=== PATIENT | female | born 2000 | race Caucasian/White ===

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

== ENCOUNTER 2021-05-29 20:40 | Emergency (ER) | payer SELFPAY ==
[2021-05-29 21:05] VITALS: BP 134/68; PULSE 72; RESP 18; TEMP 36.1; O2SAT 100
--- NOTE | 2021-05-29 21:06 | ED.GENADULT ---
HPI - General Adult General Chief complaint: Unspecified Stated complaint: + test, wants blood work Time Seen by Provider: 05/29/21 21:06 History of Present Illness HPI narrative: 20-year-old female presents to the emergency room for evaluation of possible . Patient states her last menstrual period was over a month ago. Patient states that she took 2 urine test prior to arrival, 1 was +1 was negative. Patient denies any abdominal pain or vaginal. Related Data Home Medications Medication Instructions Recorded Confirmed cetirizine 10 mg PO DAILY PRN 01/01/20 Allergies Allergy/AdvReac Type Severity Reaction Status Date / Time No Known Allergies Allergy Verified 01/01/20 00:05 Review of Systems Review of Systems: CONSTITUTIONAL: Denies fever, chills, or sweats. EYES: Denies visual changes, redness, or discharge. ENT: Denies rhinorrhea, congestion, sore throat, or otalgia. CARDIOVASCULAR: Denies chest pain, palpitations, or edema. RESPIRATORY: Denies cough or dyspnea. GASTROINTESTINAL: Denies abdominal pain, nausea, vomiting, or diarrhea. GENITOURINARY: Denies dysuria or hematuria. SKIN: Denies rash or itching. MUSCULOSKELETAL: Denies back pain, joint pain, or myalgia. NEUROLOGIC: Denies headache, numbness, dizziness, or weakness. PSYCHIATRIC: Denies anxiety or depression. PMFSH Past Medical History Medical History ADHD Surgical History Surgical History No history of previous surgery Social History Social History Smoking status: Never smoker Gender identity (if verbalized by the patient): Female Exam Narrative: GENERAL: Well-appearing, well-nourished, and in no acute distress. HEAD: Normocephalic, atraumatic. EYES: PERRLA and EOMI. CHEST: Clear to auscultation. No respiratory distress. No wheezes rales or rhonchi HEART: Regular rate and rhythm. No murmur heard. Normal peripheral pulses. ABDOMEN: Soft, nontender, nondistended, normal active bowel sounds. EXTREMITIES: Normal range of motion. No edema. SKIN: Warm, dry, no rash. NEURO: No focal deficits. Alert and oriented x3. PSYCH: Normal mood and affect. Course Vital Signs Vital signs: Vital Signs Temperature 36.1 C L 05/29/21 21:05 Pulse Rate 72 05/29/21 21:05 Respiratory Rate 18 05/29/21 21:05 Blood Pressure 134/68 05/29/21 21:05 Pulse Oximetry 100 05/29/21 21:05 Temperature 36.1 C L 05/29/21 21:05 Pulse Rate 72 05/29/21 21:05 Respiratory Rate 18 05/29/21 21:05 Blood Pressure 134/68 05/29/21 21:05 Pulse Oximetry 100 05/29/21 21:05 Medical Decision Making Vital Signs Vital Signs: Vital Signs Temperature 36.1 C L 05/29/21 21:05 Pulse Rate 72 05/29/21 21:05 Respiratory Rate 18 05/29/21 21:05 Blood Pressure 134/68 05/29/21 21:05 Pulse Oximetry 100 05/29/21 21:05 Temperature 36.1 C L 05/29/21 21:05 Pulse Rate 72 05/29/21 21:05 Respiratory Rate 18 05/29/21 21:05 Blood Pressure 134/68 05/29/21 21:05 Pulse Oximetry 100 05/29/21 21:05 Lab Data Labs: Lab Results 05/29/21 05/29/21 Range/Units 21:38 21:59 Serum HCG, Qual Negative Urine Test Negative Discharge Plan Discharge Clinical Impression: Encounter for test with result negative Patient Disposition: Home, Self-Care Condition: Stable Instructions: Antibiotic Form Prescriptions: No Action cetirizine 10 mg tablet 10 mg PO DAILY PRN (Reason: Allergy Symptoms) RF: 0 Cepacol Sore Throat (zara-men) 15-2.6 mg lozenge 1 víctor mucous membrane Q2H PRN (Reason: sore throat) Qty: 16 RF: 0 Follow-up/Referrals: PHYSICIAN,BREAK AND LOAD OPERATOR [Primary Care Provider] - Time of Disposition: 22:20
[2021-05-29 22:14] LABS: Pregnancy On Board Control Positive; Urine Pregnancy Test Negative
[2021-05-29 22:14] LABS: Serum Qual hCG Negative
[2021-05-29 22:15] LABS: SPREG INTERNAL CONTROL Positive
== END 2021-05-29 23:00 | disposition home or self-care (01) ==
PROVIDERS: Emergency Provider Nurse Practitioner Family
DX: Z32.02 Encounter for pregnancy test, result negative (principal)
CPT/HCPCS: 36415; 81025; 84703; 99283

== ENCOUNTER 2021-06-08 17:35 | Emergency (ER) | payer SELFPAY ==
[2021-06-08 17:37] VITALS: BP 137/77; PULSE 87; RESP 18; TEMP 36.9; O2SAT 98
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
[2021-06-08 18:42] VITALS: BP 118/78; PULSE 72; RESP 16; O2SAT 100
== END 2021-06-08 18:43 | disposition home or self-care (01) ==
LOC: ANHED 17:44
PROVIDERS: Emergency Provider Nurse Practitioner Family
DX: S80.862A Insect bite (nonvenomous), left lower leg, initial encounter (principal); S80.861A Insect bite (nonvenomous), right lower leg, initial encounter; S40.862A Insect bite (nonvenomous) of left upper arm, initial encounter; S40.861A Insect bite (nonvenomous) of right upper arm, initial encounter; F90.9 Attention-deficit hyperactivity disorder, unspecified type; W57.XXXA Bitten or stung by nonvenomous insect and other nonvenomous arthropods, initial encounter
CPT/HCPCS: 96372; 99283; J1100

== ENCOUNTER 2021-12-29 18:51 | Emergency (ER) | payer OTHER, SELFPAY ==
--- NOTE | ~2021-12-29 | XR_ITS ---
EXAMINATION: XR ankle RT min 3V DATE: 12/29/2021 19:10 INDICATION: Lateral sided right ankle swelling post injury with audible pop TECHNIQUE: Anteroposterior, oblique, mortise, and lateral views of the right ankle were obtained. COMPARISON: None. FINDINGS: Alignment is normal. No fracture. Joint spaces are well maintained. No ankle joint effusion. The so ft tissues are unremarkable. IMPRESSION: Negative right ankle radiographs. Reviewed, dictated and finalized at location A. MANAGER
[2021-12-29 18:53] VITALS: BP 130/64; PULSE 79; RESP 16; TEMP 37; O2SAT 100
--- NOTE | 2021-12-29 19:24 | ED.GENADULT ---
HPI - General Adult General Chief complaint: Extremity Injury, Lower Stated complaint: R ANKLE PAIN Time Seen by Provider: 12/29/21 19:03 Source: RN notes reviewed History of Present Illness HPI narrative: Patient presents emergency room from home for right ankle pain. Patient states that her mother was in the hospital last night and she had stayed with her mother and had been sleeping sitting upright in a chair states this morning she had gone to get up and her foot was asleep and it caused her to stumble rolling her right ankle she states that time she felt a pop in her right lateral ankle and is had pain since that time. States she is able to walk on the ankle but it is painful she denies any other trauma or injury states she has not taken anything for the pain denies any numbness or tingling Related Data Home Medications Medication Instructions Recorded Confirmed cetirizine 10 mg tablet 10 mg PO DAILY PRN Allergy Symptoms 01/01/20 Allergies Allergy/AdvReac Type Severity Reaction Status Date / Time No Known Allergies Allergy Verified 01/01/20 00:05 Review of Systems Review of Systems: Gen.: Denies fevers or chills Musculoskeletal: See HPI Neuro: Denies numbness, tingling, weakness Skin: Denies rash Endo: Denies DM PMFSH Past Medical History Medical History ADHD Surgical History Surgical History No history of previous surgery Social History Social History Smoking status: Never smoker Gender identity (if verbalized by the patient): Female Exam Narrative: APPEARANCE: No acute distress, nontoxic, resting in bed Eyes: EOMI HEENT: Normocephalic, atraumatic, RESPIRATORY: No respiratory distress MUSCULOSKELETAl: Tender to palpation of the right lateral malleolus mild swelling with no ecchymosis no tenderness over the anterior or medial ankle no tenderness of the proximal fibula or the base of the fifth metatarsal dorsalis pedis pulse 2+ neurovascular intact NEURO: Awake and alert. Following commands, speech normal, no focal deficits SKIN:: Warm, dry. Normal Color no rash or lesions Course Course Emergency Course: Discussed with patient results of workup and diagnosis. Discussed need for follow-up with primary care, proper use of medication, and reasons to return to the emergency department. Patient understands and agrees to current treatment plan Vital Signs Vital signs: Vital Signs Temperature 98.6 F 12/29/21 18:53 Pulse Rate 79 12/29/21 18:53 Respiratory Rate 16 12/29/21 18:53 Blood Pressure 130/64 12/29/21 18:53 Pulse Oximetry 100 12/29/21 18:53 Oxygen Delivery Room Air 12/29/21 18:53 Temperature 98.6 F 12/29/21 18:53 Pulse Rate 79 12/29/21 18:53 Respiratory Rate 16 12/29/21 18:53 Blood Pressure 130/64 12/29/21 18:53 Pulse Oximetry 100 12/29/21 18:53 Oxygen Delivery Room Air 12/29/21 18:53 Medical Decision Making Vital Signs Vital Signs: Vital Signs Temperature 98.6 F 12/29/21 18:53 Pulse Rate 79 12/29/21 18:53 Respiratory Rate 16 12/29/21 18:53 Blood Pressure 130/64 12/29/21 18:53 Pulse Oximetry 100 12/29/21 18:53 Oxygen Delivery Room Air 12/29/21 18:53 Temperature 98.6 F 12/29/21 18:53 Pulse Rate 79 12/29/21 18:53 Respiratory Rate 16 12/29/21 18:53 Blood Pressure 130/64 12/29/21 18:53 Pulse Oximetry 100 12/29/21 18:53 Oxygen Delivery Room Air 12/29/21 18:53 Imaging Data Radiologist's impression: ITS Impressions Ankle X-Ray 12/29/21 19:25 IMPRESSION: Negative right ankle radiographs. Discharge Plan Discharge Clinical Impression: Right ankle sprain Patient Disposition: Home, Self-Care Condition: Stable Instructions: Antibiotic Form, Ankle Sprain (ED) Additional Instructions: Return for
[2021-12-29] MEDS: IBUPROFEN 600 MG TABLET PO (19:56)
== END 2021-12-29 20:05 | disposition home or self-care (01) ==
PROVIDERS: Emergency Provider Emergency Medicine
DX: S93.401A Sprain of unspecified ligament of right ankle, initial encounter (principal); X50.9XXA Other and unspecified overexertion or strenuous movements or postures, initial encounter
CPT/HCPCS: 73610; 99283; A9270

== ENCOUNTER 2022-02-16 15:26 | Outpatient (CLI) | payer OTHER, SELFPAY ==
[2022-02-16 15:56] LABS: Basophils Percent Auto 0.3 % (0.2-1.2); Eosinophils Absolute Auto 0.1 K/mm3 (0-0.3); Eosinophils Percent Auto 1.4 % (0-4.4); Hematocrit 41.7 % (37.0-47.0); Hemoglobin 13.9 g/dL (12.0-15.0); Immature Granulocyte Absolute 0.02 K/mm3 (0.00-0.031); Immature Granulocyte Percent A 0.3 % (0-0.5); Lymphocytes Absolute Auto 1.91 K/mm3 (0.9-3.2); Lymphocytes Percent Auto 24.8 % (18.3-44.2); Mean Corpuscular HGB Conc 33.3 g/dl (32-36); Mean Corpuscular Hemoglobin 28.1 pg (26-34); Mean Corpuscular Volume 84.2 fl (80-100); Mean Platelet Volume 10.7 fl (7.4-10.4); Monocytes Absolute Auto 0.6 K/mm3 (0.1-0.6); Monocytes Percent Auto 7.3 % (2.6-8.5); Neutrophils Absolute Auto 5.1 K/mm3 (1.3-6.7); Neutrophils Percent Auto 65.9 % (45.5-73.1); Platelet Count Result 238 k/mm3 (150-375); Red Blood Count 4.95 M/mm3 (4.2-5.4); Red Cell Distribution Width 13.7 % (11.5-14.5); White Blood Count 7.7 K/mm3 (4.5-10.0)
[2022-02-16 16:45] LABS: HIV 1/2 Ab P24 Ag Result Negative (Negative)
[2022-02-16 17:53] LABS: Hepatitis B Surface Antigen Negative (Negative)
[2022-02-17 11:57] LABS: Rapid Plasma Reagin Non-Reactive (NonReactive)
[2022-02-20 09:56] LABS: CMV IgG Antibody <0.60 U/mL (<0.60)
== END 2022-02-16 15:27 | disposition home or self-care (01) ==
LOC: ANHLAB 15:27
PROVIDERS: Visit Provider Student in an Organized Health Care Education/Training Program
DX: N94.89 Other specified conditions associated with female genital organs and menstrual cycle (principal)
CPT/HCPCS: 36415; 84702; 85025; 86592; 86644; 86703; 86747; 86787; 86850; 86900; 86901; 87086; 87088; 87340; G0432

== ENCOUNTER 2022-03-16 16:10 | Outpatient (CLI) | payer OTHER, SELFPAY ==
[2022-03-16 18:21] LABS: Rubella IgG Antibody 6.6 IU/ML
== END 2022-03-16 16:11 | disposition home or self-care (01) ==
LOC: ANHLAB 16:12
PROVIDERS: Visit Provider Student in an Organized Health Care Education/Training Program
DX: N94.89 Other specified conditions associated with female genital organs and menstrual cycle (principal)
CPT/HCPCS: 36415; 86762

== ENCOUNTER 2022-04-20 21:29 | Emergency (ER) | payer OTHER, SELFPAY ==
[2022-04-20 22:20] VITALS: BP 131/53; PULSE 78; RESP 18; TEMP 36.7; O2SAT 98
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
[2022-04-21 01:14] VITALS: BP 112/85; PULSE 74; RESP 16; O2SAT 98
== END 2022-04-21 01:37 | disposition home or self-care (01) ==
PROVIDERS: Emergency Provider Emergency Medicine; PCP Emergency Medicine
DX: O9A.212 Injury, poisoning and certain other consequences of external causes complicating pregnancy, second trimester (principal); S39.92XA Unspecified injury of lower back, initial encounter; Z3A.15 15 weeks gestation of pregnancy
CPT/HCPCS: 99282

== ENCOUNTER 2022-07-20 11:06 | Outpatient (CLI) | payer OTHER, SELFPAY ==
[2022-07-20 12:43] LABS: Basophils Percent Auto 0.2 % (0.2-1.2); Eosinophils Absolute Auto 0.1 K/mm3 (0-0.3); Eosinophils Percent Auto 1.5 % (0-4.4); Hematocrit 34.7 % (37.0-47.0); Hemoglobin 11.4 g/dL (12.0-15.0); Immature Granulocyte Absolute 0.07 K/mm3 (0.00-0.031); Immature Granulocyte Percent A 0.8 % (0-0.5); Lymphocytes Absolute Auto 1.77 K/mm3 (0.9-3.2); Lymphocytes Percent Auto 19.2 % (18.3-44.2); Mean Corpuscular HGB Conc 32.9 g/dl (32-36); Mean Corpuscular Hemoglobin 27.5 pg (26-34); Mean Corpuscular Volume 83.8 fl (80-100); Mean Platelet Volume 10.7 fl (7.4-10.4); Monocytes Absolute Auto 0.7 K/mm3 (0.1-0.6); Monocytes Percent Auto 7.7 % (2.6-8.5); Neutrophils Absolute Auto 6.5 K/mm3 (1.3-6.7); Neutrophils Percent Auto 70.6 % (45.5-73.1); Platelet Count Result 209 k/mm3 (150-375); Red Blood Count 4.14 M/mm3 (4.2-5.4); Red Cell Distribution Width 13.1 % (11.5-14.5); White Blood Count 9.2 K/mm3 (4.5-10.0)
[2022-07-20 13:12] LABS: Glucose 1 Hour PP 50gm Dose 105 mg/dL
[2022-07-20 13:53] LABS: HIV 1/2 Ab P24 Ag Result Negative (Negative)
== END 2022-07-20 11:07 | disposition home or self-care (01) ==
PROVIDERS: PCP Emergency Medicine; Visit Provider Obstetrics & Gynecology
DX: Z34.90 Encounter for supervision of normal pregnancy, unspecified, unspecified trimester (principal)
CPT/HCPCS: 36415; 82947; 85025; 86703; G0432

== ENCOUNTER 2022-09-21 12:48 | Outpatient (CLI) | payer OTHER, SELFPAY ==
--- NOTE | ~2022-09-21 | US_ITS ---
EXAMINATION: US OB follow up DATE: 09/21/2022 13:55 INDICATION: Encounter for supervision of normal third trimester TECHNIQUE: Real-time ultrasound of the pelvis was performed. The interpreting radiologist was not pre sent for the study. COMPARISON: 05/22/2020 FINDINGS: There is a single living fetus in vertex presentation. The placenta is anterior. card iac activity and movement are noted. heart rate is 151 beats per minute (bpm). The amniot ic fluid index is 7.9 which is normal (normal range: 7.5 cm to 24.4 cm) . The following biometric data were obtained: Biparietal diameter (BPD): 9.5 cm; head circumference (HC): 32.9 cm; abdominal circumference (AC): 34 .8 cm; femur length (FL): 7.0 cm. These measurements are concordant. Estimated weight is 3356 g +/- 503 g, which correlates with the 70th percentile when 10/08/2022 i s used as estimated date of delivery. As single measurements, these parameters are each equal to the following estimated gestational ages w ith ranges of +/- 2 standard deviations: BPD: 38 weeks 4 days +/- 3 weeks 1 days. HC: 37 weeks 3 days +/- 2 weeks 5 days. AC: 38 weeks 5 days +/- 3 weeks 0 days. FL: 36 weeks 0 days +/- 3 weeks 0 days. estimated gestational age based solely on measurements from this exam is 37 weeks 5 days +/- 2 weeks 4 days. IMPRESSION: 1. Single living fetus in vertex presentation. 2. Normal amniotic fluid index. 3. Estimated weight is 3356 g +/- 503 g, which correlates with the 70th percentile when 3 is used as estimated date of delivery. Reviewed, dictated and finalized at location L. IMPRESSION: 1. Single living fetus in vertex presentation. 2. Normal amniotic fluid index. 3. Estimated weight is 3356 g +/- 503 g, which correlates with the 70th p ercentile when 10/08/2022 is used as estimated date of delivery.
== END 2022-09-21 12:49 | disposition home or self-care (01) ==
PROVIDERS: PCP Emergency Medicine; Visit Provider Obstetrics & Gynecology
DX: Z34.90 Encounter for supervision of normal pregnancy, unspecified, unspecified trimester (principal)
CPT/HCPCS: 76816

== ENCOUNTER 2022-10-04 01:23 | Inpatient (IN) | payer OTHER, SELFPAY ==
[2022-10-04] VITALS (175 sets, daily range): BP systolic 81–158; BP diastolic 42–120; PULSE 38–129; RESP 16–18; TEMP 36.5–37.6; O2SAT 83–100; BMI 36.3
--- NOTE | 2022-10-04 04:00 | LDADM ---
This patient, Lashon A Hemann, was admitted to Labor/Delivery/Recovery 107 on 10/04/22 at 01:23. Plans for labor, pain management and were discussed with patient. Patient/family oriented to hospital policies and general routines including ID bracelet, bed and alarms, visiting hours, pain management, procedures, bathroom and other care routines, personal items, smoking policy, room service/diet and guest tray routines, security routines, and visiting hours. Patient/Family are encouraged to report perceived risks to care and to ask questions if they do not understand what they are told or what they should do. See OBIX for further documentation.
[2022-10-04] MEDS: LACTATED RINGERS 1,000 ML 125 ML IV CONT ×2 (04:16→06:59)
[2022-10-04] MEDS: fentaNYL CITRATE INJ (*CRX) 100 MCG/2 ML VIAL 50 MCG IV PUSH (04:17)
[2022-10-04 04:37] LABS: Basophils Percent Auto 0.2 % (0.2-1.2); Eosinophils Absolute Auto 0.1 K/mm3 (0-0.3); Eosinophils Percent Auto 0.4 % (0-4.4); Hematocrit 36.9 % (37.0-47.0); Hemoglobin 12.5 g/dL (12.0-15.0); Immature Granulocyte Absolute 0.05 K/mm3 (0.00-0.031); Immature Granulocyte Percent A 0.4 % (0-0.5); Lymphocytes Absolute Auto 1.65 K/mm3 (0.9-3.2); Lymphocytes Percent Auto 14.2 % (18.3-44.2); Mean Corpuscular HGB Conc 33.9 g/dl (32-36); Mean Corpuscular Hemoglobin 26.9 pg (26-34); Mean Corpuscular Volume 79.4 fl (80-100); Mean Platelet Volume 11.4 fl (7.4-10.4); Monocytes Percent Auto 8.2 % (2.6-8.5); Neutrophils Absolute Auto 8.9 K/mm3 (1.3-6.7); Neutrophils Percent Auto 76.6 % (45.5-73.1); Platelet Count Result 193 k/mm3 (150-375); Red Blood Count 4.65 M/mm3 (4.2-5.4); Red Cell Distribution Width 14.6 % (11.5-14.5); White Blood Count 11.7 K/mm3 (4.5-10.0)
--- NOTE | 2022-10-04 05:08 | WPDANESEPP ---
Anes - Eval Pre Procedure Procedure: Labor epidural Date/Time: 10/04/22 05:08 Surgeon: Juanita Preop Diagnosis: Abdominal pain with contractions Pre Op Diagnosis: Spotting & Cramping Patient Data Age: 21 Gender: F Height: 1.63 m Weight: 96 kg Last Vital Signs Pulse 110 H 10/04/22 05:07 BP 158/66 H 10/04/22 05:07 Pulse Ox 100 10/04/22 05:05 Allergies Allergy/AdvReac Type Severity Reaction Status Date / Time No Known Allergies Allergy Verified 10/03/22 16:57 Home Medications Medication Instructions Recorded Confirmed Type ferrous sulfate 325 mg (65 mg 325 mg PO DAILY 08/02/22 10/03/22 History iron) tablet vits no.10-ferrous 1 tablet PO DAILY 08/02/22 10/03/22 History fumarate 65 mg iron-folic acid 1 mg tablet Laboratory Tests 10/04/22 04:14 WBC 11.7 H K/mm3 (4.5-10.0) RBC 4.65 M/mm3 (4.2-5.4) Hgb 12.5 g/dL (12.0-15.0) Hct 36.9 L % (37.0-47.0) MCV 79.4 L fl (80-100) MCH 26.9 pg (26-34) MCHC 33.9 g/dl (32-36) RDW 14.6 H % (11.5-14.5) Plt Count 193 k/mm3 (150-375) MPV 11.4 H fl (7.4-10.4) Immature Gran % (Auto) 0.4 % (0-0.5) Neut % (Auto) 76.6 H % (45.5-73.1) Lymph % (Auto) 14.2 L % (18.3-44.2) [place] % (Auto) 8.2 % (2.6-8.5) Eos % (Auto) 0.4 % (0-4.4) Baso % (Auto) 0.2 % (0.2-1.2) Lymph # (Auto) 1.65 K/mm3 (0.9-3.2) [place] # (Auto) 1.0 H K/mm3 (0.1-0.6) Eos # (Auto) 0.1 K/mm3 (0-0.3) Baso # (Auto) 0.0 K/mm3 (0.0-0.1) Abs Immat Gran (auto) 0.05 H K/mm3 (0.00-0.031) Absolute Neuts (auto) 8.9 H K/mm3 (1.3-6.7) Absolute Nucleated RBC 0.0 K/mm3 (0.0-0.012) Nucleated RBC % 0.0 % (0.0-0.2) RPR Pending : gestational age HCG: positive Patient hx anesthesia problems: none Family hx anesthesia problems: none Results Review: All pre-operative results and documents have been reviewed as part of the pre-operative evaluation. [facility] Past Medical History Medical History ADHD and not yet delivered Suppression of menses Vaginal discharge Surgical History Surgical History No history of previous surgery Family History Family History Mother Congestive heart failure Afib Multiple sclerosis COPD (chronic obstructive pulmonary disease) Kidney failure Other Unknown family medical history Social History Social History Smoking status: Never smoker Alcohol intake: former Substance use: never Substance use type: does not use Lack of Transportation: No Lack of Food: Never True Current Housing: I Have Housing Concerned About Future Housing: No Difficulty Paying Gas/Electric Bills: No Difficulty Paying for Meds: No Currently Unemployed: No Education: High School Diploma/GED Difficulty w/ Childcare or Family Care: No Living arrangements: other Additional living arrangements comments: single 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
[2022-10-04] MEDS: OXYTOCIN 30 UNITS/NS 500 ML 30 UNITS/500 ML BAG 6 UNITS IV CONT (06:49)
--- NOTE | 2022-10-04 11:18 | P.PCNOB_ITS ---
OB - Delivery Note Procedure Delivery augmentation: Rupture of Membranes and Pitocin Delivery monitor: External FHT and Internal Uterine Route of delivery: Episiotomy description: None Laceration Description: Vaginal Delivery repair: chromic Specimen: Yes Quantitative Blood Loss (ml): 300 Anesthesia type: Epidural Disposition: Floor Complications: none Narrative: patient was prepped and draped in usual manner this procedure. Maternal expulsive effort readily delivered vertex the rest of baby followed without difficulty. Cord clamped cut and baby was passed off to the warehouse technician in attendance. Placenta delivered spontaneously. Uterus was well contracted. Cervix vagina vulva were inspected with right lateral vaginal wall laceration noted. This was rendered hemostatic using [id number] 0 chromic suture. Uterus again was well contracted and not bleeding at this point the procedure was considered terminated with immediate postoperative condition of mother baby both good. Baby Weeks of gestation at delivery: 39 gender: Male presentation: vertex position: Right Occiput Anterior Placenta delivery description: Spontaneous Cord Vessel Description: 3 Vessels [facility] Delivery Billing Delivery Delivery: Delivery Charge
--- NOTE | 2022-10-04 11:18 | WPDHPUPDATE1 ---
History and Physical Update Update Date/Time: 10/04/22 11:18 History and Physical has been reviewed, including an updated exam of the patient. There are NO changes in the patient's condition. Risks, benefits, and alternatives have been discussed and questions answered. Patient agrees to proceed with procedure.
--- NOTE | 2022-10-04 11:18 | WPDOBADMIT ---
Obstetrics - Admit Note Admission Note: record reviewed. No pertinent additions to the history and/or any subsequent changes in the physical findings that are not consistent with the expected course of the were found. Additions to the history and/or subsequent changes in the physical findings follow. None.
[2022-10-04] MEDS: OXYTOCIN 30 UNITS/NS 500 ML 30 UNITS/500 ML BAG 125 UNITS IV CONT (11:42)
[2022-10-04 14:36] LABS: Rapid Plasma Reagin Non-Reactive (NonReactive)
--- NOTE | 2022-10-04 20:18 | OBPPTRN ---
1455 Patient transferred to post room #292 via W/C. Support person present. Oriented to unit, room, information board, rooming in, admission packet and security measures. Patient verbalizes understanding.
[2022-10-05 00:17] VITALS: BP 117/67; PULSE 99; RESP 14; TEMP 36.8; O2SAT 100
[2022-10-05 04:10] VITALS: BP 113/61; PULSE 84; RESP 16; TEMP 36.6; O2SAT 100
[2022-10-05 05:28] LABS: Basophils Percent Auto 0.3 % (0.2-1.2); Eosinophils Absolute Auto 0.2 K/mm3 (0-0.3); Eosinophils Percent Auto 1.1 % (0-4.4); Hematocrit 34.1 % (37.0-47.0); Hemoglobin 11.2 g/dL (12.0-15.0); Immature Granulocyte Absolute 0.08 K/mm3 (0.00-0.031); Immature Granulocyte Percent A 0.6 % (0-0.5); Lymphocytes Absolute Auto 3.11 K/mm3 (0.9-3.2); Lymphocytes Percent Auto 23.4 % (18.3-44.2); Mean Corpuscular HGB Conc 32.8 g/dl (32-36); Mean Corpuscular Hemoglobin 27.3 pg (26-34); Mean Platelet Volume 11.1 fl (7.4-10.4); Monocytes Absolute Auto 1.1 K/mm3 (0.1-0.6); Monocytes Percent Auto 8.5 % (2.6-8.5); Neutrophils Absolute Auto 8.8 K/mm3 (1.3-6.7); Neutrophils Percent Auto 66.1 % (45.5-73.1); Platelet Count Result 180 k/mm3 (150-375); Red Blood Count 4.11 M/mm3 (4.2-5.4); Red Cell Distribution Width 14.8 % (11.5-14.5); White Blood Count 13.3 K/mm3 (4.5-10.0)
--- NOTE | 2022-10-05 08:35 | PM.OBDSVD ---
DS: Admitting Diagnosis Discharge Date 10/05/2022 Admitting Diagnosis DS: Discharge Diagnosis Discharge Diagnosis (1) , delivered: Code(s): O80 - Encounter for full-term uncomplicated delivery Status: Acute OB - DS: Summary OB Procedures : None OB Procedures Intrapartum: Spontaneous Vag Delivery OB Procedures: : None Time Spent with Patient Time attestation: Total time spent providing and/or coordinating discharge services: DS: Data Data Completed and Pending Pending studies at discharge: Pending at discharge 10/04/22 11:07 Surgical [PTH] Routine Labs on day of discharge: Labs from last 24 hours 10/05/22 10/04/22 04:38 04:14 WBC 13.3 H RBC 4.11 L Hgb 11.2 L Hct 34.1 L MCV 83.0 MCH 27.3 MCHC 32.8 RDW 14.8 H Plt Count 180 MPV 11.1 H Immature Gran % (Auto) 0.6 H Neut % (Auto) 66.1 Lymph % (Auto) 23.4 [place] % (Auto) 8.5 Eos % (Auto) 1.1 Baso % (Auto) 0.3 Lymph # (Auto) 3.11 [place] # (Auto) 1.1 H Eos # (Auto) 0.2 Baso # (Auto) 0.0 Abs Immat Gran (auto) 0.08 H Absolute Neuts (auto) 8.8 H Absolute Nucleated RBC 0.0 Nucleated RBC % 0.0 RPR Non-reactive Discharge Plan Discharge Discharging Clinician: Nestor Grant Patient Disposition: Home, Self-Care Activity: as tolerated Diet: as tolerated Patient Instructions: Antibiotic Form Stand Alone Forms: General Discharge Information Follow-up/Referrals: Nestor Grant MD [Physician] - 3 Weeks Discharge Medications: New ibuprofen 600 mg Tablet 600 mg PO Q6H PRN (Reason: Cramping) Qty: 20 0RF Continued vit 10-iron fum-folic 65-1 mg tablet 1 tablet PO DAILY ferrous sulfate 325 mg (65 mg iron) tablet 325 mg PO DAILY Date of admission: 10/04/22 01:23 Primary Care Provider: Amish Vivas Admitting Provider: Nestor Grant Attending physician on admission: Nestor Grant Condition: Stable
[2022-10-05] MEDS: DOCUSATE SODIUM 100 MG CAPSULE PO (08:51)
[2022-10-05] MEDS: MEASLES,MUMPS,RUBELLA VACCINE 0.5 ML VIAL SUB-Q (08:51)
[2022-10-05] MEDS: MULTIVIT/MIN/PREN/FOL AC/IRON TABLET 1 TAB PO (08:51)
[2022-10-05 09:40] VITALS: BP 116/61; PULSE 85; RESP 16; TEMP 36.3; O2SAT 100
--- NOTE | 2022-10-05 10:20 | WPDANLDPN2 ---
Anes-Prog Note L&D Date/Time: 10/05/22 10:20 Comfortable throughout: labor and delivery Neuraxial method: epidural Epidural/Spinal procedure site: clean & non-tender Neuro status: Neuro function grossly intact. Cardiovascular status: normal Respiratory status: normal Airway patency: baseline Mental status: baseline Post-Op hydration status: normal Vital Signs: Last Vital Signs Temp 36.3 C L 10/05/22 09:40 Pulse 85 10/05/22 09:40 Resp 16 10/05/22 09:40 BP 116/61 10/05/22 09:40 Pulse Ox 100 10/05/22 09:40 O2 Del Method Room Air 10/05/22 08:50 Pain score (VAS): 2/10 I/O: Intake & Output 10/04/22 10/05/22 10/05/22 23:59 07:59 15:59 Intake Total 240 Balance 240 Post-procedural complaints: none Patient feedback: Patient satisfied with anesthetic care.
== END 2022-10-05 10:05 | disposition home or self-care (01) | DRG 542 ==
LOC: ANHLDR 03:49 → ANHOB2 15:10
PROVIDERS: Admitting Provider Obstetrics & Gynecology; PCP Emergency Medicine; Visit Provider Obstetrics & Gynecology
DX: O71.4 Obstetric high vaginal laceration alone (principal); Z37.0 Single live birth; Z3A.39 39 weeks gestation of pregnancy
CPT/HCPCS: 36415; 85025; 86592; 86850; 86900; 86901; 88307; 90710; A9270; J2590; J2795; J3010; J7120

== ENCOUNTER 2023-02-13 11:38 | Outpatient (CLI) | payer OTHER, SELFPAY ==
[2023-02-13 13:04] LABS: Basophils Percent Auto 0.5 % (0.2-1.2); Eosinophils Absolute Auto 0.1 K/mm3 (0-0.3); Eosinophils Percent Auto 1.7 % (0-4.4); Hematocrit 40.6 % (37.0-47.0); Hemoglobin 13.3 g/dL (12.0-15.0); Immature Granulocyte Absolute 0.02 K/mm3 (0.00-0.031); Immature Granulocyte Percent A 0.3 % (0-0.5); Lymphocytes Absolute Auto 2.02 K/mm3 (0.9-3.2); Lymphocytes Percent Auto 31.3 % (18.3-44.2); Mean Corpuscular HGB Conc 32.8 g/dl (32-36); Mean Corpuscular Hemoglobin 26.3 pg (26-34); Mean Corpuscular Volume 80.4 fl (80-100); Mean Platelet Volume 10.7 fl (7.4-10.4); Monocytes Absolute Auto 0.4 K/mm3 (0.1-0.6); Monocytes Percent Auto 6.8 % (2.6-8.5); Neutrophils Absolute Auto 3.8 K/mm3 (1.3-6.7); Neutrophils Percent Auto 59.4 % (45.5-73.1); Platelet Count Result 232 k/mm3 (150-375); Red Blood Count 5.05 M/mm3 (4.2-5.4); Red Cell Distribution Width 13.9 % (11.5-14.5); White Blood Count 6.5 K/mm3 (4.5-10.0)
[2023-02-13 13:16] LABS: Glucose 1 Hour PP 50gm Dose 102 mg/dL
[2023-02-13 13:56] LABS: HIV 1/2 Ab P24 Ag Result Negative (Negative)
[2023-02-13 14:54] LABS: Rapid Plasma Reagin Non-Reactive (NonReactive)
[2023-02-13 15:11] LABS: Hepatitis B Surface Antigen Negative (Negative)
[2023-02-13 16:11] LABS: Rubella IgG Antibody > 110.0 IU/ML
[2023-02-15 09:51] LABS: CMV IgG Antibody <0.60 U/mL (<0.60)
== END 2023-02-13 11:39 | disposition home or self-care (01) ==
LOC: ANHLAB 11:40
PROVIDERS: PCP Emergency Medicine; Visit Provider Obstetrics & Gynecology
DX: N91.2 Amenorrhea, unspecified (principal)
CPT/HCPCS: 36415; 82947; 85025; 86592; 86644; 86703; 86747; 86762; 86787; 86850; 86900; 86901; 87086; 87088; 87340; G0432

== ENCOUNTER 2023-05-20 21:24 | Emergency (ER) | payer OTHER, SELFPAY ==
[2023-05-20 21:28] VITALS: BP 117/68; PULSE 145; RESP 20; TEMP 37.3; O2SAT 98
[2023-05-20 21:48] VITALS: BP 139/82; PULSE 132; RESP 16; TEMP 36.8; O2SAT 97
--- NOTE | 2023-05-20 21:49 | ED.URI ---
HPI - URI/Sore Throat General Chief Complaint: Upper Respiratory Infection Stated Complaint: body aches, fever Time Seen by Provider: 05/20/23 21:39 History of Present Illness HPI Narrative: 22-year-old female who is currently 22 weeks presents to the emergency department for URI symptoms x2 days. Patient reports body aches, productive cough, rhinorrhea and a sore throat. She states last night she had a fever of 100.4. She states her mother is sick with similar symptoms. She denies dysuria or hematuria, vaginal bleeding or discharge, otalgia, abdominal pain, chest pain or shortness of breath. MARKUS is 09/26/2023 per patient. She states that she has been feeling normal movement since the onset of illness. Her OBGYN is Dr. Grant. Related Data Home Medications Medication Instructions Recorded Confirmed docosahexaenoic acid 200 mg mg PO 02/21/23 04/18/23 capsule ( DHA) Allergies Allergy/AdvReac Type Severity Reaction Status Date / Time No Known Allergies Allergy Verified 05/20/23 21:30 Review of Systems Review of Systems: CONSTITUTIONAL: see HPI EYES: Denies visual changes, redness, or discharge. ENT: see HPI CARDIOVASCULAR: Denies chest pain, palpitations, or edema. RESPIRATORY: see HPI GASTROINTESTINAL: Denies abdominal pain, nausea, vomiting, or diarrhea. GENITOURINARY: Denies dysuria or hematuria. SKIN: Denies rash or itching. MUSCULOSKELETAL: Denies back pain, joint pain, or myalgia. NEUROLOGIC: Denies headache, numbness, or weakness. PSYCHIATRIC: Denies anxiety or depression. [facility] Past Medical History Medical History ADHD and not yet delivered Suppression of menses Vaginal discharge Surgical History Surgical History No history of previous surgery Family History Family History Mother Congestive heart failure Afib Multiple sclerosis COPD (chronic obstructive pulmonary disease) Kidney failure Other Unknown family medical history Social History Social History Smoking status: Never smoker Alcohol intake: former Substance use: never Substance use type: does not use Lack of Transportation: No Lack of Food: Never True Current Housing: I Have Housing Concerned About Future Housing: No Difficulty Paying Gas/Electric Bills: No Difficulty Paying for Meds: No Currently Unemployed: No Education: High School Diploma/GED Difficulty w/ Childcare or Family Care: No Living arrangements: other Additional living arrangements comments: single 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 HEAD: Normocephalic, atraumatic. EYES: PERRLA and EOMI. ENT: Nares clear, no rhinorrhea or epistaxis. Mucous membranes moist. posterior pharynx with mild erythema. No tonsillar hypertrophy or exudates. Uvula midline. Bilateral TMs are cole nonbulging with normal canals. No mastoid tenderness. NECK: Supple. CHEST: Clear to auscultation. No respiratory distress. HEART: Regular rate and rhythm. No murmur heard. Normal peripheral pulses. ABDOMEN: Soft, nontender, nondistended, normal active bowel sounds. Uterus palpated just above the umbilicus. No CVA tenderness. EXTREMITIES: Normal range of motion. No edema. SKIN: Warm, dry, no rash. NEURO: No focal deficits. Alert and oriented x3 Course Vital Signs Vital signs: Vital Signs Temperature 99.2 F 05/20/23 21:28 Pulse Rate 145 H 05/20/23 21:28 Respiratory Rate
[2023-05-20 21:59] VITALS: O2SAT 100
[2023-05-20 22:02] LABS: Strep Group A RT-PCR NOT DETECTED (Negative)
[2023-05-20] MEDS: SODIUM CHLORIDE 0.9% IV 1,000 ML 999 ML IV CONT ×2 (22:09→22:28)
[2023-05-20 22:10] LABS: Basophils Percent Auto 0.3 % (0.2-1.2); Eosinophils Percent Auto 0.3 % (0-4.4); Hematocrit 33.8 % (37.0-47.0); Hemoglobin 11.2 g/dL (12.0-15.0); Immature Granulocyte Absolute 0.03 K/mm3 (0.00-0.031); Immature Granulocyte Percent A 0.5 % (0-0.5); Lymphocytes Absolute Auto 0.94 K/mm3 (0.9-3.2); Lymphocytes Percent Auto 15.5 % (18.3-44.2); Mean Corpuscular HGB Conc 33.1 g/dl (32-36); Mean Corpuscular Hemoglobin 26.2 pg (26-34); Mean Platelet Volume 10.6 fl (7.4-10.4); Monocytes Absolute Auto 0.7 K/mm3 (0.1-0.6); Monocytes Percent Auto 12.2 % (2.6-8.5); Neutrophils Absolute Auto 4.3 K/mm3 (1.3-6.7); Neutrophils Percent Auto 71.2 % (45.5-73.1); Platelet Count Result 191 k/mm3 (150-375); Red Blood Count 4.28 M/mm3 (4.2-5.4); Red Cell Distribution Width 14.6 % (11.5-14.5); White Blood Count 6.1 K/mm3 (4.5-10.0)
[2023-05-20] MEDS: ACETAMINOPHEN 500 MG TABLET 1000 MG PO (22:10)
[2023-05-20 22:13] LABS: Influenza A QL RT-PCR Negative (Negative); Influenza B QL RT-PCR Positive (Negative); RSV RNA, RT-PCR Negative (Negative); SARS-CoV-2 RNA PCR Negative (Negative)
[2023-05-20 22:19] LABS: Alanine Aminotransferase 16 U/L (6-35); Alkaline Phosphatase 66 U/L (38-126); Anion Gap 10 mmol/L (4-12); Aspartate Amino Transferase 19 U/L (14-36); Bilirubin,Total 0.5 mg/dL (0.2-1.3); Blood Urea Nitrogen 6 mg/dL (7-17); Calcium 9.2 mg/dL (8.4-10.2); Carbon Dioxide 20 mmol/L (22-30); Chloride 106 mmol/L (98-107); Estimated CRCL calculation 175 ml/min; Estimated Glomerular Filt Rate > 60; Glucose 121 mg/dL (65-110); Potassium 3.3 mmol/L (3.4-5.0); Sodium 136 mmol/L (137-145)
[2023-05-20] MEDS: POTASSIUM CHLORIDE 20 MEQ PACKET (FOR LIQUID) PO (22:28)
[2023-05-20 22:52] VITALS: BP 133/72; PULSE 109; RESP 16; O2SAT 99
[2023-05-20 22:52] LABS: Monoscreen Negative (Negative); Negative Monotest Control Negative (Negative); Positive Monotest Control Positive (Positive)
[2023-05-20 23:09] LABS: Magnesium 1.8 mg/dL (1.6-2.3)
[2023-05-20 23:32] LABS: Appearance Urine Cloudy (Clear); Bacteria Urine 3+ /hpf; Bilirubin Urine 1+ (Negative); Blood Urine Negative (Negative); Color Urine Dark Yellow (Yellow); Glucose Urine UA Negative (Negative); Ketones Urine 2+ mg/dL (Negative); Leukocyte Esterase Ur 1+ LEU/UL (Negative); Nitrate Urine Negative (Negative); Non Pathogenic Casts 0-2; Protein Urine 1+ mg/dL (Negative); Squamous Epithelial Cell Urine Moderate /hpf (Few)
[2023-05-20 23:33] LABS: Add Urine Microscopic? YES; Specific Grav Ur 1.031 (1.001-1.035)
[2023-05-21 00:20] VITALS: BP 129/56; PULSE 102; RESP 16; O2SAT 98
[2023-05-21 01:28] VITALS: PULSE 88
== END 2023-05-21 01:52 | disposition home or self-care (01) ==
PROVIDERS: Emergency Medicine; Emergency Provider Physician Assistant
DX: O99.512 Diseases of the respiratory system complicating pregnancy, second trimester (principal); J10.1 Influenza due to other identified influenza virus with other respiratory manifestations; O23.42 Unspecified infection of urinary tract in pregnancy, second trimester; N39.0 Urinary tract infection, site not specified; Z3A.22 22 weeks gestation of pregnancy; Z20.822 Contact with and (suspected) exposure to COVID-19
CPT/HCPCS: 36415; 80053; 81001; 83735; 85025; 86308; 87086; 87088; 87637; 87651; 96361; 96365; 99284; A9270; J0696; J7030

== ENCOUNTER 2023-06-09 10:09 | Emergency (ER) | payer OTHER, SELFPAY ==
[2023-06-09 10:39] VITALS: BP 133/63; PULSE 94; RESP 16; TEMP 36.4; O2SAT 100
--- NOTE | 2023-06-09 11:27 | ED.FEMALEGU ---
HPI - Female Genitourinary General Chief complaint: Urogenital-Female Stated complaint: uti Time Seen by Provider: 06/09/23 11:16 Source: patient, RN notes reviewed and old records reviewed (ER record and urine culture) Mode of arrival: ambulatory Limitations: no limitations History of Present Illness HPI Narrative: Patient presents today complaining of a 2 day history of dysuria, urgency, frequency. She has tried no [id number] treatment prior to arrival. She is currently 24 weeks with a due date of 09/26/2023. Patient was treated for UTI on 05/20/2023 and given Keflex. Her urine culture grew back multiple genital beronica. Related Data Home Medications Medication Instructions Recorded Confirmed docosahexaenoic acid 200 mg 200 mg PO DAILY 02/21/23 06/09/23 capsule ( DHA) Allergies Allergy/AdvReac Type Severity Reaction Status Date / Time No Known Allergies Allergy Verified 06/09/23 10:51 Review of Systems Review of Systems: CONSTITUTIONAL: Denies body aches, fever, chills, or sweats. EYES: Denies visual changes, redness, or discharge. ENT: Denies rhinorrhea, congestion, sore throat, or otalgia. CARDIOVASCULAR: Denies chest pain, palpitations, or edema. RESPIRATORY: Denies cough or dyspnea. GASTROINTESTINAL: Denies abdominal pain, nausea, vomiting, or diarrhea. GENITOURINARY: + dysuria, urgency, frequency SKIN: Denies rash, itching, or wounds. MUSCULOSKELETAL: Denies back pain, joint pain, or myalgia. NEUROLOGIC: Denies headache, numbness, tingling, or weakness. PSYCH: Denies depression or anxiety. [facility] Past Medical History Medical History ADHD and not yet delivered Suppression of menses Vaginal discharge Surgical History Surgical History No history of previous surgery Family History Family History Mother Congestive heart failure Afib Multiple sclerosis COPD (chronic obstructive pulmonary disease) Kidney failure Other Unknown family medical history Social History Social History Smoking status: Never smoker Alcohol intake: former Substance use: never Substance use type: does not use Lack of Transportation: No Lack of Food: Never True Current Housing: I Have Housing Concerned About Future Housing: No Difficulty Paying Gas/Electric Bills: No Difficulty Paying for Meds: No Currently Unemployed: No Education: High School Diploma/GED Difficulty w/ Childcare or Family Care: No Living arrangements: other Additional living arrangements comments: single 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 Please see nursing chart for further information. There is no relevant family history pertinent to the presenting complaint Exam Narrative: GENERAL: Well-appearing, well-nourished, and in no acute distress. HEAD: Normocephalic, atraumatic. EYES: EOMI. No redness or drainage. Conjunctivae normal. ENT: Mucous membranes pink and moist. NECK: Normal AROM. CHEST: No respiratory distress. Clear to auscultation. HEART: Regular rate and rhythm. No murmur appreciated. ABDOMEN: Soft, nontender, normal active bowel sounds. Gravid abdomen EXTREMITIES: Normal range of motion. SKIN: Warm, dry, no rash. Capillary refill normal. Normal skin turgor. NEURO: No focal deficits. Alert and oriented x3. Gait steady. PSYCH: Normal affect. No signs of depression or
== END 2023-06-09 11:34 | disposition home or self-care (01) ==
PROVIDERS: Emergency Provider Nurse Practitioner
DX: O23.42 Unspecified infection of urinary tract in pregnancy, second trimester (principal); B96.20 Unspecified Escherichia coli [E. coli] as the cause of diseases classified elsewhere; N39.0 Urinary tract infection, site not specified; Z3A.24 24 weeks gestation of pregnancy
CPT/HCPCS: 81003; 87077; 87086; 87088; 87186; 99213; G0463

== ENCOUNTER 2023-07-14 10:36 | Outpatient (CLI) | payer OTHER, SELFPAY ==
[2023-07-14 12:07] LABS: Basophils Percent Auto 0.4 % (0.2-1.2); Eosinophils Absolute Auto 0.1 K/mm3 (0-0.3); Eosinophils Percent Auto 1.3 % (0-4.4); Hematocrit 33.2 % (37.0-47.0); Hemoglobin 10.6 g/dL (12.0-15.0); Immature Granulocyte Absolute 0.04 K/mm3 (0.00-0.031); Immature Granulocyte Percent A 0.5 % (0-0.5); Lymphocytes Absolute Auto 1.93 K/mm3 (0.9-3.2); Lymphocytes Percent Auto 24.9 % (18.3-44.2); Mean Corpuscular HGB Conc 31.9 g/dl (32-36); Mean Corpuscular Volume 78.3 fl (80-100); Mean Platelet Volume 11.4 fl (7.4-10.4); Monocytes Absolute Auto 0.6 K/mm3 (0.1-0.6); Monocytes Percent Auto 7.1 % (2.6-8.5); Neutrophils Absolute Auto 5.1 K/mm3 (1.3-6.7); Neutrophils Percent Auto 65.8 % (45.5-73.1); Platelet Count Result 199 k/mm3 (150-375); Red Blood Count 4.24 M/mm3 (4.2-5.4); Red Cell Distribution Width 14.5 % (11.5-14.5); White Blood Count 7.8 K/mm3 (4.5-10.0)
[2023-07-14 12:21] LABS: Glucose 1 Hour PP 50gm Dose 100 mg/dL
[2023-07-14 12:59] LABS: HIV 1/2 Ab P24 Ag Result Negative (Negative)
[2023-07-16 13:15] LABS: Rapid Plasma Reagin Non-Reactive (NonReactive)
== END 2023-07-14 10:37 | disposition home or self-care (01) ==
LOC: ANHLAB 10:37
PROVIDERS: Visit Provider Student in an Organized Health Care Education/Training Program
DX: Z34.90 Encounter for supervision of normal pregnancy, unspecified, unspecified trimester (principal); Z3A.00 Weeks of gestation of pregnancy not specified
CPT/HCPCS: 36415; 82947; 85025; 86592; 86703; G0432

== ENCOUNTER 2023-07-18 18:30 | Emergency (ER) | payer OTHER, SELFPAY ==
--- NOTE | ~2023-07-18 | XR_ITS ---
XR ankle RT min 3V Ordering provider: Izabela Martinez MD History: . RIGHT ankle injury STEPPING OFF OF STEP . Comparison: December 29, 2021 FINDINGS: BONES: No acute fracture or dislocation. JOINT SPACES: The ankle mortise is normal. SOFT TISSUES: Normal. IMPRESSION: No acute osseous abnormality right ankle. Reviewed, dictated and finalized at location A.
[2023-07-18 18:34] VITALS: BP 118/55; PULSE 87; RESP 19; TEMP 36.9; O2SAT 100
--- NOTE | 2023-07-18 20:02 | ED.LOWEXIN ---
HPI - Extremity Injury (Lower) General Chief Complaint: Extremity Injury, Lower Stated Complaint: right ankle injury Time Seen by Provider: 07/18/23 19:43 History of Present Illness HPI Narrative: 22-year-old female who is currently 30 weeks presents to the emergency department for right ankle pain after a mechanical injury. Patient states prior to arrival she was trying to jump mop water out of her front door when her toddler got in her way caused her to fall. States she twisted her right ankle and fell to the ground, landing on her right hip and elbow. States she did not hit her head or lose consciousness. States she did not hit her abdomen. She has been feeling the fetus kick multiple times since the fall. states her hip and elbow were not causing her any pain, the only area of pain is to the lateral aspect of her right ankle. Her OBGYN is Dr. Grant. Related Data Home Medications Medication Instructions Recorded Confirmed docosahexaenoic acid 200 mg 200 mg PO DAILY 02/21/23 07/17/23 capsule ( DHA) Allergies Allergy/AdvReac Type Severity Reaction Status Date / Time No Known Allergies Allergy Verified 07/18/23 19:55 Review of Systems Review of Systems: CONSTITUTIONAL: Denies fever, chills, or sweats. EYES: Denies visual changes, redness, or discharge. ENT: Denies rhinorrhea, congestion, sore throat, or otalgia. CARDIOVASCULAR: Denies chest pain, palpitations, or edema. RESPIRATORY: Denies cough or dyspnea. GASTROINTESTINAL: Denies abdominal pain, nausea, vomiting, or diarrhea. GENITOURINARY: Denies dysuria or hematuria. SKIN: Denies rash or itching. MUSCULOSKELETAL: see HPI NEUROLOGIC: Denies headache, numbness, or weakness. PSYCHIATRIC: Denies anxiety or depression. [facility] Past Medical History Medical History ADHD and not yet delivered Suppression of menses Vaginal discharge Surgical History Surgical History No history of previous surgery Family History Family History Mother Congestive heart failure Afib Multiple sclerosis COPD (chronic obstructive pulmonary disease) Kidney failure Other Unknown family medical history Social History Social History Smoking status: Never smoker Alcohol intake: former Substance use: never Substance use type: does not use Lack of Transportation: No Lack of Food: Never True Current Housing: I Have Housing Concerned About Future Housing: No Difficulty Paying Gas/Electric Bills: No Difficulty Paying for Meds: No Currently Unemployed: No Education: High School Diploma/GED Difficulty w/ Childcare or Family Care: No Living arrangements: other Additional living arrangements comments: single 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 HEAD: Normocephalic, atraumatic. EYES: PERRLA and EOMI. ENT: Nares clear, no rhinorrhea or epistaxis. Mucous membranes moist. NECK: no midline cervical spinous tenderness, step-offs or deformities BACK: no midline thoracolumbar spinous tenderness, step-offs or deformities CHEST: Clear to auscultation. No respiratory distress. HEART: Regular rate and rhythm. No murmur heard. Normal peripheral pulses. ABDOMEN: Soft, nontender, nondistended, normal active bowel sounds. Gravid abdomen EXTREMITIES: RLE: tenderness to the lateral malleolus without overlying edema or obvious deformity. Patient has full range of motion of her ankle but this does cause pain. PAUL
[2023-07-18] MEDS: ACETAMINOPHEN 500 MG TABLET 1000 MG PO (20:40)
[2023-07-18 20:46] VITALS: PULSE 76; RESP 20; O2SAT 98
== END 2023-07-18 21:18 | disposition home or self-care (01) ==
PROVIDERS: Emergency Provider Physician Assistant
DX: O9A.213 Injury, poisoning and certain other consequences of external causes complicating pregnancy, third trimester (principal); S93.491A Sprain of other ligament of right ankle, initial encounter; Z3A.30 30 weeks gestation of pregnancy; W18.39XA Other fall on same level, initial encounter; X50.9XXA Other and unspecified overexertion or strenuous movements or postures, initial encounter
CPT/HCPCS: 73610; 99283; A9270

== ENCOUNTER 2023-08-19 17:45 | Inpatient (IN) | payer OTHER, SELFPAY ==
[2023-08-19] VITALS (51 sets, daily range): BP systolic 54–152; BP diastolic 37–92; PULSE 74–115; O2SAT 91–99; BMI 39.5
[2023-08-19 18:25] LABS: OBXCEM ROM Plus Positive
[2023-08-19 18:37] LABS: Basophils Percent Auto 0.3 % (0.2-1.2); Eosinophils Absolute Auto 0.1 K/mm3 (0-0.3); Eosinophils Percent Auto 1.3 % (0-4.4); Hemoglobin 10.9 g/dL (12.0-15.0); Immature Granulocyte Absolute 0.03 K/mm3 (0.00-0.031); Immature Granulocyte Percent A 0.4 % (0-0.5); Lymphocytes Absolute Auto 1.69 K/mm3 (0.9-3.2); Lymphocytes Percent Auto 24.1 % (18.3-44.2); Mean Corpuscular Hemoglobin 25.2 pg (26-34); Mean Corpuscular Volume 76.2 fl (80-100); Mean Platelet Volume 11.5 fl (7.4-10.4); Monocytes Absolute Auto 0.6 K/mm3 (0.1-0.6); Monocytes Percent Auto 8.6 % (2.6-8.5); Neutrophils Absolute Auto 4.6 K/mm3 (1.3-6.7); Neutrophils Percent Auto 65.3 % (45.5-73.1); Platelet Count Result 201 k/mm3 (150-375); Red Blood Count 4.33 M/mm3 (4.2-5.4); Red Cell Distribution Width 15.8 % (11.5-14.5)
[2023-08-19] MEDS: BETAMETHASONE SOD PHOS/ACETATE 30 MG/5 ML VIAL 12 MG IM (18:54)
[2023-08-19] MEDS: LACTATED RINGERS 1,000 ML 125 ML IV CONT ×2 (18:56→23:14)
[2023-08-19] MEDS: AMPICILLIN 2 GM/NS 100 ML 2 GM/100 ML BAG IVPB (18:59)
[2023-08-19] MEDS: OXYTOCIN 30 UNITS/NS 500 ML 30 UNITS/500 ML BAG IV CONT (19:03)
--- NOTE | 2023-08-19 19:12 | LDADM ---
This patient, Lashon Koroma, was admitted to Labor/Delivery/Recovery 106 on 08/19/23 at 17:45. Plans for labor, pain management and were discussed with patient. Patient/family oriented to hospital policies and general routines including ID bracelet, bed and alarms, visiting hours, pain management, procedures, bathroom and other care routines, personal items, smoking policy, room service/diet and guest tray routines, infant security routines, and visiting hours. Patient/Family are encouraged to report perceived risks to care and to ask questions if they do not understand what they are told or what they should do. See OBIX for further documentation.
[2023-08-19 19:31] LABS: HIV 1/2 Ab P24 Ag Result Negative (Negative)
--- NOTE | 2023-08-19 20:11 | WPDANESEPP ---
Anes - Eval Pre Procedure Procedure: Labor epidural Date/Time: 08/19/23 20:11 Surgeon: Juanita Preop Diagnosis: Abdominal pain with contractions Pre Op Diagnosis: leaking Patient Data Age: 22 Gender: F Height: 1.57 m Weight: 98 kg Last Vital Signs Pulse 87 08/19/23 20:00 BP 131/62 08/19/23 20:00 O2 Del Method Room Air 08/19/23 17:45 Allergies Allergy/AdvReac Type Severity Reaction Status Date / Time No Known Allergies Allergy Verified 08/19/23 18:54 Laboratory Tests 08/19/23 08/19/23 18:00 18:31 WBC 7.0 K/mm3 (4.5-10.0) RBC 4.33 M/mm3 (4.2-5.4) Hgb 10.9 L g/dL (12.0-15.0) Hct 33.0 L % (37.0-47.0) MCV 76.2 L fl (80-100) MCH 25.2 L pg (26-34) MCHC 33.0 g/dl (32-36) RDW 15.8 H % (11.5-14.5) Plt Count 201 k/mm3 (150-375) MPV 11.5 H fl (7.4-10.4) Immature Gran % (Auto) 0.4 % (0-0.5) Neut % (Auto) 65.3 % (45.5-73.1) Lymph % (Auto) 24.1 % (18.3-44.2) [place] % (Auto) 8.6 H % (2.6-8.5) Eos % (Auto) 1.3 % (0-4.4) Baso % (Auto) 0.3 % (0.2-1.2) Lymph # (Auto) 1.69 K/mm3 (0.9-3.2) [place] # (Auto) 0.6 K/mm3 (0.1-0.6) Eos # (Auto) 0.1 K/mm3 (0-0.3) Baso # (Auto) 0.0 K/mm3 (0.0-0.1) Abs Immat Gran (auto) 0.03 K/mm3 (0.00-0.031) Absolute Neuts (auto) 4.6 K/mm3 (1.3-6.7) Absolute Nucleated RBC 0.000 K/mm3 (0.0-0.012) Nucleated RBC % 0.0 % (0.0-0.2) Membranes Rupture Rom plus positive Membranes Rup Com Yes RPR Pending HIV 1&2 Ab/P24 Ag 4thGn Negative (Negative) Blood Type O Positive Antibody Screen Negative : gestational age HCG: positive Patient hx anesthesia problems: none Family hx anesthesia problems: none Results Review: All pre-operative results and documents have been reviewed as part of the pre-operative evaluation. [facility] Social History Social History Smoking status: Former smoker Second hand tobacco smoke exposure: No Substance use: never Do You Feel Safe in your Home?: Yes Lack of Transportation: No Lack of Food: Never True Current Housing: I Have Housing Concerned About Future Housing: No Difficulty Paying Gas/Electric Bills: No Difficulty Paying for Meds: No Currently Unemployed: No Education: High School Diploma/GED Difficulty w/ Childcare or Family Care: No Spiritual care concerns: No Exam Day of Procedure 08/19/23 20:11
--- NOTE | 2023-08-19 20:14 | PM.IMHP ---
H&P: HPI History of Present Illness Date/Time: 08/19/23 20:14 Chief Complaint: leaking fluid Narrative: Lashon is a 22yo @ 34.4 wks (MARKUS 09/26/23) who presented to L&D with concerns for leakage of clear fluid since approximately 1130 today (08/19/23). She reports good movement. No regular contractions. No VB. No fevers, chills, abdominal tenderness. She has had regular PNC (all PNC under maiden name Lashon Santillan). Her is complicated by: - Short inter- interval (delivery 10/04/22) - Influenza B in @ 22wks - UTI's in Review of Systems Constitutional: Constitutional: Denies chills, Denies fever(s) and Denies headache(s) Eyes: Eyes: Denies change in vision ENT: Denies headache(s) Cardiovascular: Cardiovascular: Denies chest pain and Denies dyspnea Respiratory: Respiratory: Denies dyspnea Genitourinary: Genitourinary: Denies abnormal vaginal bleeding and Reports vaginal discharge (/leakage of fluid) Neurologic: Denies headache(s) Psychiatric: Psychiatric: Denies anxiety and Denies depression PMFSH Social History Social History Smoking status: Former smoker Second hand tobacco smoke exposure: No Substance use: never Do You Feel Safe in your Home?: Yes Lack of Transportation: No Lack of Food: Never True Current Housing: I Have Housing Concerned About Future Housing: No Difficulty Paying Gas/Electric Bills: No Difficulty Paying for Meds: No Currently Unemployed: No Education: High School Diploma/GED Difficulty w/ Childcare or Family Care: No Spiritual care concerns: No Meds Home Medications and Allergies Allergies Allergy/AdvReac Type Severity Reaction Status Date / Time No Known Allergies Allergy Verified 08/19/23 18:54 Vital Signs Vital Signs - 24 hr 08/19/23 18:15 08/19/23 18:30 08/19/23 18:45 Pulse Rate 87 85 85 Blood Pressure 139/66 125/61 124/68 Oxygen Delivery 08/19/23 19:00 08/19/23 19:15 08/19/23 19:30 Pulse Rate 81 87 80 Blood Pressure 118/58 L 126/75 124/69 Oxygen Delivery 08/19/23 19:45 08/19/23 20:00 08/19/23 17:45 Pulse Rate 93 87 Blood Pressure 127/61 131/62 Oxygen Delivery Room Air Exam Const: General: cooperative, healthy appearing, no acute distress and obese Nutritional Appearance: obese Orientation/consciousness: patient oriented x3 Resp: Effort & Inspection: normal respiratory effort Cardio: Rate: regular rate GI: GI Palp: No abdominal tenderness : Other: FHT's: 140's/ mod natalia/ + accels/ no decels - cat 1 TOCO: ctxs q_min Cervix: 3/thick/-3 Membranes: grossly ruptured; clear; ROM+ positive Presentation: cephalic Skin: General skin exam: normal color Neuro: General: patient oriented x3 Extrem: General: normal to inspection Psych: Appearance: grossly normal Affect: normal affect Attitude: cooperative H&P: Results Labs Labs: Short CBC 08/19/23 Range/Units 18:31 WBC 7.0 (4.5-10.0) K/mm3 Hgb 10.9 L (12.0-15.0) g/dL Hct 33.0 L (37.0-47.0) % Plt Count 201 (150-375) k/mm3 Assessment and Plan Assessment and plan (1) premature rupture of membranes (PPROM) with unknown onset of labor: Code(s): O42.919 - premature rupture of membranes, unspecified as to length of time between rupture and onset of labor, unspecified trimester Status: Acute Plan - Admitted to L&D with PPROM >34wks, will proceed with delivery, no active signs of infection - Betamethasone 12mg IM; repeat in 24 hours if not delivered - Ampicillin for GBS unknown/prematurity - Low dose Pitocin augmentation as she is not actively codie - Anesthesia consult PRN pain - Continuous monitoring; currently reassuring
[2023-08-19] MEDS: AMPICILLIN 1 GM/NS 50 ML 1 GM/50 ML BAG IVPB (23:19)
--- NOTE | 2023-08-19 23:19 | WPDANESEPP ---
Anes - Eval Pre Procedure Procedure: Labor epidural Date/Time: 08/19/23 23:20 Surgeon: florencio Preop Diagnosis: Abdominal pain with contractions Pre Op Diagnosis: leaking Patient Data Age: 22 Gender: F Height: 1.57 m Weight: 98 kg Last Vital Signs Pulse 75 08/19/23 23:18 BP 138/71 08/19/23 23:18 Pulse Ox 98 08/19/23 23:14 O2 Del Method Room Air 08/19/23 17:45 Allergies Allergy/AdvReac Type Severity Reaction Status Date / Time No Known Allergies Allergy Verified 08/19/23 18:54 Laboratory Tests 08/19/23 08/19/23 18:00 18:31 WBC 7.0 K/mm3 (4.5-10.0) RBC 4.33 M/mm3 (4.2-5.4) Hgb 10.9 L g/dL (12.0-15.0) Hct 33.0 L % (37.0-47.0) MCV 76.2 L fl (80-100) MCH 25.2 L pg (26-34) MCHC 33.0 g/dl (32-36) RDW 15.8 H % (11.5-14.5) Plt Count 201 k/mm3 (150-375) MPV 11.5 H fl (7.4-10.4) Immature Gran % (Auto) 0.4 % (0-0.5) Neut % (Auto) 65.3 % (45.5-73.1) Lymph % (Auto) 24.1 % (18.3-44.2) Butts % (Auto) 8.6 H % (2.6-8.5) Eos % (Auto) 1.3 % (0-4.4) Baso % (Auto) 0.3 % (0.2-1.2) Lymph # (Auto) 1.69 K/mm3 (0.9-3.2) Butts # (Auto) 0.6 K/mm3 (0.1-0.6) Eos # (Auto) 0.1 K/mm3 (0-0.3) Baso # (Auto) 0.0 K/mm3 (0.0-0.1) Abs Immat Gran (auto) 0.03 K/mm3 (0.00-0.031) Absolute Neuts (auto) 4.6 K/mm3 (1.3-6.7) Absolute Nucleated RBC 0.000 K/mm3 (0.0-0.012) Nucleated RBC % 0.0 % (0.0-0.2) Membranes Rupture Rom plus positive Membranes Rup Com Yes RPR Pending HIV 1&2 Ab/P24 Ag 4thGn Negative (Negative) Blood Type O Positive Antibody Screen Negative : gestational age HCG: positive Patient hx anesthesia problems: none Family hx anesthesia problems: none Results Review: All pre-operative results and documents have been reviewed as part of the pre-operative evaluation. [facility] Past Medical History Medical History Obesity and not yet delivered Social History Social History Smoking status: Former smoker Second hand tobacco smoke exposure: No Substance use: never Do You Feel Safe in your Home?: Yes Lack of Transportation: No Lack of Food: Never True Current Housing: I Have Housing Concerned About Future Housing: No Difficulty Paying Gas/Electric Bills: No Difficulty Paying for Meds: No Currently Unemployed: No Education: High School Diploma/GED Difficulty w/ Childcare or Family Care: No Spiritual care concerns: No Exam Day of Procedure 08/19/23 23:20 Patient weight: obese Airway: Mallampati scale class III
[2023-08-20] VITALS (51 sets, daily range): BP systolic 101–139; BP diastolic 53–104; PULSE 68–121; RESP 16–18; TEMP 36.3–37.1; O2SAT 96–100
--- NOTE | 2023-08-20 01:47 | PM.OBPRVD ---
OB - Vaginal Delivery Note Procedure Delivery date: 08/20/23 Events: Premature Rupture of Membranes Induction method: Per Pitocin Protocol Delivery monitor: External FHT and Internal Uterine Route of delivery: Episiotomy description: None Laceration Description: None Specimen: Yes (placenta) Quantitative Blood Loss (ml): 100 Anesthesia type: Epidural Disposition: Floor Complications: No immediate complications [place] Baby Date of : 08/20/23 Time of : 01:31 Weeks of gestation at delivery: 34 (.5) gender: Male Weight (pounds): 6 Weight (ounces): 12 presentation: vertex Placenta delivery description: Expressed Cord Vessel Description: 3 Vessels, Clamped/Cut and Delayed Cord Clamping score one minute: 8 score five minutes: 9 Narrative: Dedra rapidly progressed to complete dilation with strong desire to push. She pushed twice and delivered the head over intact perineum. The pediatric team was present for delivery. Delayed cord clamping was performed and spontaneous cry was then heard. The umbilical cord was then doubly clamped and cut at 1 minute of life. A segment of the cord was collected for cord gases. The remaining cord blood was collected for typing. With Pitocin running and gentle downward traction on the cord, the placenta delivered without complication. Bimanual massage was performed and good uterine tone with minimal bleeding was noted. She was examined and no lacerations were identified. Her uterus remained firm with minimal bleeding. Sponge, lap, instrument, and needle counts were correct at the end of the procedure. Mom and baby were left bonding in the birthing suite in stable condition.
[2023-08-20] MEDS: OXYTOCIN 30 UNITS/NS 500 ML 30 UNITS/500 ML BAG 125 UNITS IV CONT (02:08)
[2023-08-20] MEDS: miSOPROStol 200 MCG TABLET 800 MCG RECTAL (02:30)
--- NOTE | 2023-08-20 06:00 | OBPPTRN ---
08/20/2023 at 0415 Patient transferred to post room #290 in wheelchair. Support person present. Patient oriented to unit, room, information board, rooming in, admission packet and security measures. Patient verbalizes understanding.
[2023-08-20 07:11] LABS: Rapid Plasma Reagin Non-Reactive (NonReactive)
[2023-08-20] MEDS: DOCUSATE SODIUM 100 MG CAPSULE PO (09:12)
[2023-08-20] MEDS: MULTIVIT/MIN/PREN/FOL AC/IRON TABLET 1 TAB PO (09:12)
[2023-08-21 02:40] LABS: Hematocrit 36.2 % (37.0-47.0); Hemoglobin 11.2 g/dL (12.0-15.0); Mean Corpuscular HGB Conc 30.9 g/dl (32-36); Mean Corpuscular Volume 80.8 fl (80-100); Mean Platelet Volume 11.5 fl (7.4-10.4); Platelet Count Result 180 k/mm3 (150-375); Red Blood Count 4.48 M/mm3 (4.2-5.4); Red Cell Distribution Width 15.7 % (11.5-14.5); White Blood Count 10.4 K/mm3 (4.5-10.0)
--- NOTE | 2023-08-21 06:40 | PM.OBPNVD ---
OB - PN: Subj Subjective Date/time seen: 08/21/23 06:40 Narrative: PPD#1 Lashon reports doing well today. 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 Her pain is controlled. She is tolerating regular diet, voiding, passing gas, and ambulating without issues. She is breast feeding. She would NOT like her son circumcised. OB - PN: Obj Data Labs 08/21/23 02:09 Labs: Laboratory Results - last 24 hr 08/19/23 08/21/23 18:31 02:09 WBC 10.4 H RBC 4.48 Hgb 11.2 L Hct 36.2 L MCV 80.8 D MCH 25.0 L MCHC 30.9 L RDW 15.7 H Plt Count 180 MPV 11.5 H RPR Non-reactive OB - PN A/P Assessment and Plan (1) Normal vaginal delivery of second : Code(s): O80 - Encounter for full-term uncomplicated delivery Status: Acute (2) premature rupture of membranes (PPROM) delivered, current hospitalization: Code(s): O42.919 - premature rupture of membranes, unspecified as to length of time between rupture and onset of labor, unspecified trimester Status: Acute Plan day: 1 Plan: routine care Comments: - No signs/symptoms of infection - PO pain meds - Regular diet - Ambulation and hydration encouraged - Continue putting baby to breast q2-3hr Time Spent With Patient Time: Total time spent is greater than 50% in coordination of care (as documented) at patient's floor/unit and/or counseling patient: Review of Systems Constitutional: Constitutional: Denies chills, Denies fever(s) and Denies headache(s) Eyes: Eyes: Denies change in vision ENT: Denies dizziness and Denies headache(s) Cardiovascular: Cardiovascular: Denies chest pain, Denies palpitations and Denies dyspnea Respiratory: Respiratory: Denies cough and Denies dyspnea Gastrointestinal: Gastrointestinal: Denies nausea and Denies vomiting Neurologic: Denies dizziness and Denies headache(s) Endocrine: Endocrine: Denies palpitations Exam Const: General: cooperative, comfortable and no acute distress Orientation/consciousness: patient oriented x3 Resp: Effort & Inspection: normal respiratory effort Auscultation: clear to auscultation bilaterally Cardio: Rate: regular rate GI: Inspection: non-distended GI Palp: No abdominal tenderness and Yes Soft to palpation Auscultation: normal bowel sounds : Other: fundus firm Skin: General skin exam: normal color Neuro: General: patient oriented x3 Extrem: General: normal to inspection Psych: Appearance: grossly normal Affect: normal affect Attitude: cooperative
[2023-08-21 07:20] VITALS: BP 131/70; PULSE 73; RESP 18; TEMP 36.7; O2SAT 100
[2023-08-21] MEDS: MULTIVIT/MIN/PREN/FOL AC/IRON TABLET 1 TAB PO (07:41)
--- NOTE | 2023-08-21 09:30 | PC.NURSE ---
Met with patient regarding needs. Patient is currently attempting at breast and then pumping and bottle feeding. Infant is only 34 weeks gestation. Encouraged mother to call out at a feeding today for a latch and feeding assessment. Mother verbalized understanding and states she will call out.
--- NOTE | 2023-08-21 11:09 | WPDANLDPN2 ---
Anes-Prog Note L&D Date/Time: 08/21/23 11:09 Comfortable throughout: labor and delivery Neuraxial method: epidural Epidural/Spinal procedure site: clean & non-tender Neuro status: Neuro function grossly intact. Cardiovascular status: normal Respiratory status: normal Airway patency: baseline Mental status: baseline Post-Op hydration status: normal Vital Signs: Last Vital Signs Temp 36.7 C 08/21/23 07:20 Pulse 73 08/21/23 07:20 Resp 18 08/21/23 07:20 BP 131/70 08/21/23 07:20 Pulse Ox 100 08/21/23 07:20 O2 Del Method Room Air 08/20/23 19:00 Pain score (VAS): 3/10 I/O: Intake & Output 08/20/23 08/21/23 08/21/23 23:59 07:59 15:59 Intake Total 400 Balance 400 Post-procedural complaints: none Patient feedback: Patient satisfied with anesthetic care.
[2023-08-21] MEDS: medroxyPROGESTERone ACETATE IM 150 MG/ML SYR IM (17:05)
[2023-08-21 19:30] VITALS: BP 119/72; PULSE 66; RESP 18; TEMP 36.9
--- NOTE | 2023-08-22 07:33 | PM.OBDSVD ---
DS: Admitting Diagnosis Discharge Date 08/22/23 Admitting Diagnosis PPROM DS: Discharge Diagnosis Discharge Diagnosis (1) premature rupture of membranes (PPROM) delivered, current hospitalization: Code(s): O42.919 - premature rupture of membranes, unspecified as to length of time between rupture and onset of labor, unspecified trimester Status: Acute OB - DS: Summary OB Procedures : Ultrasound OB Procedures Intrapartum: Spontaneous Vag Delivery OB Procedures: : Other (depo-provera) Peripartum Data Delivery Method: Natural Vaginal Laceration Description: None Episiotomy description: None complications: none [place] 1: Gender: Male Disposition of : other (staying admitted for feeding/growing) Status at Discharge Functional status at discharge: independent ambulation Overall status at discharge: patient is back to baseline Time Spent with Patient Time attestation: Total time spent providing and/or coordinating discharge services: Exam Const: General: cooperative, healthy appearing, comfortable, no acute distress and obese Orientation/consciousness: patient oriented x3 Resp: Effort & Inspection: normal respiratory effort Auscultation: clear to auscultation bilaterally Cardio: Rate: regular rate GI: Inspection: non-distended GI Palp: No abdominal tenderness and Yes Soft to palpation Auscultation: normal bowel sounds : Other: fundus firm Skin: General skin exam: normal color Neuro: General: patient oriented x3 Extrem: General: normal to inspection Psych: Appearance: grossly normal Affect: normal affect Attitude: cooperative DS: Data Data Completed and Pending Completed studies during hospitalization: Pending at discharge 08/20/23 03:15 Surgical [PTH] Routine Labs on day of discharge: Labs from last 24 hours 08/21/23 02:09 WBC 10.4 H RBC 4.48 Hgb 11.2 L Hct 36.2 L MCV 80.8 D MCH 25.0 L MCHC 30.9 L RDW 15.7 H Plt Count 180 MPV 11.5 H Discharge Plan Discharge Attending physician on discharge: Lizeth Seth Discharging Clinician: Lizeth Seth Patient Disposition: Home, Self-Care Activity: may shower and pelvic rest Diet: regular Patient Instructions: Vaginal Delivery (DC) Stand Alone Forms: General Discharge Information Follow-up/Referrals: Lizeth Seth MD [Physician] - 4 Weeks Discharge Medications: New acetaminophen 325 mg Tablet 650 mg PO Q6H PRN (Reason: Mild Pain (1-3) Or Headache) Qty: 60 0RF ibuprofen 600 mg Tablet 600 mg PO Q6H PRN (Reason: Cramping) Qty: 40 0RF Continued DHA 200 mg capsule 200 mg PO DAILY ferrous sulfate 325 mg (65 mg iron) tablet,delayed release (DR/EC) 325 mg PO DAILY docusate sodium 50 mg capsule 50 mg PO DAILY Date of admission: 08/19/23 17:45 Primary Care Provider: PHYSICIAN,[employer] PRESS OPERATOR Admitting Provider: Nestor Grant Attending physician on admission: Nestor Grant Condition: Stable
[2023-08-22] MEDS: MULTIVIT/MIN/PREN/FOL AC/IRON TABLET 1 TAB PO (08:03)
[2023-08-22 08:35] VITALS: BP 117/58; PULSE 65; RESP 16; TEMP 36.4; O2SAT 100
--- NOTE | 2023-08-22 09:09 | PCCCNOTE ---
Care Coordination: Met with pt. today who reports this is her second child. First child is 10 months old. She reports that she has some belongings at home including a car seat and pack 'n play for the infant at home currently. She reports she needs to go home and see what she has as this baby came very unexpectedly 6 weeks early. She is aware that nursing will provide some additional supplies like diapers, wipes and formula. Pt. is current with [facility] and will add this baby to services. resources provided as well. Did provides two baskets to assist with premie and clothing and supplies. Pt. has a furniture removalist lined up for baby. Denies any other needs.
--- NOTE | 2023-08-22 16:50 | PC.NURSE ---
Checked in with patient. She has continued the , pumping and supplementing routine today. She is pumping 30ml or more at each pumping session. Reviewed that infants that are may appear to feed well at the breast but usually don't transfer milk very well. Advised patient to continue to put baby to breast each feeding for practice before supplementing with breastmilk. Patient feels more confident feeding baby from the bottle because she can verify the volume he is taking. She is eager to be discharged home once baby has gained weight. She verbalized understanding of information shared and knows to call for assistance for any further questions or concerns. Reported to Primary RN.
[2023-08-23 08:22] VITALS: BP 117/62; PULSE 74; RESP 18; TEMP 37; O2SAT 98
== END 2023-08-22 17:19 | disposition home or self-care (01) | DRG 560 ==
LOC: ANHOB2 08-22 10:27 → ANHLDR 08-23 09:42 → ANHOB2 08-23 09:42
PROVIDERS: Admitting Provider Obstetrics & Gynecology; Visit Provider Obstetrics & Gynecology
DX: O60.14X0 Preterm labor third trimester with preterm delivery third trimester, not applicable or unspecified (principal); Z3A.34 34 weeks gestation of pregnancy; Z37.0 Single live birth; Z87.891 Personal history of nicotine dependence
CPT/HCPCS: 36415; 84112; 85025; 85027; 86592; 86703; 86850; 86900; 86901; 88307; A9270; G0432; J0290; J0702; J1050; J2590; J2795; J7120

== ENCOUNTER 2023-10-31 20:50 | Emergency (ER) | payer MEDICAID, SELFPAY ==
[2023-10-31 20:55] VITALS: BP 118/54; PULSE 74; RESP 16; TEMP 36.4; O2SAT 100
--- NOTE | 2023-10-31 21:07 | ED.EYEPROB ---
HPI - Eye Problem General Chief complaint: Eye Problems Stated complaint: my left eye is red, perulent drainage x1 day Time Seen by Provider: 10/31/23 20:59 History of Present Illness HPI Narrative: Patient with 2 days of red left eye, today woke up and there was some discharge/her eye was stuck together; very slight irritation but no pain, no blurry vision, no pain with movement of her eye Related Data Allergies Allergy/AdvReac Type Severity Reaction Status Date / Time No Known Allergies Allergy Verified 10/31/23 20:52 Review of Systems Review of Systems: All systems reviewed & are unremarkable except as noted in HPI and below PMFSH Past Medical History Medical History ADHD Obesity and not yet delivered and not yet delivered Suppression of menses Vaginal discharge Surgical History Surgical History No history of previous surgery Family History Family History Mother Congestive heart failure Afib Multiple sclerosis COPD (chronic obstructive pulmonary disease) Kidney failure Other Unknown family medical history Social History Social History Smoking status: Never smoker Second hand tobacco smoke exposure: No Alcohol intake: former Substance use: never Substance use type: does not use Do You Feel Safe in your Home?: Yes Lack of Transportation: No Lack of Food: Never True Current Housing: I Have Housing Concerned About Future Housing: No Difficulty Paying Gas/Electric Bills: No Difficulty Paying for Meds: No Currently Unemployed: No Education: High School Diploma/GED Difficulty w/ Childcare or Family Care: No Living arrangements: other Additional living arrangements comments: single Occupation/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 EYES: painless EOMI, PERRL, injected conjunctiva, no significant discharge, minimal eyelid swelling ENT: Hearing grossly intact LUNGS: Nonlabored breathing. HEART: [Regular rate and rhythm] ABD: [Soft], [nontender to palpation] EXT: Normal range of motion SKIN: [No rashes or lesions.] NEURO: [Alert and oriented x 3. No gross focal sensory or strength deficits.] PSYCH: Normal affect Course Vital Signs Vital signs: Vital Signs Temperature 97.5 F L 10/31/23 20:55 Pulse Rate 74 10/31/23 20:55 Respiratory Rate 16 10/31/23 20:55 Blood Pressure 118/54 L 10/31/23 20:55 Pulse Oximetry 100 10/31/23 20:55 Oxygen Delivery Room Air 10/31/23 20:55 Temperature 97.5 F L 10/31/23 20:55 Pulse Rate 74 10/31/23 20:55 Respiratory Rate 16 10/31/23 20:55 Blood Pressure 118/54 L 10/31/23 20:55 Pulse Oximetry 100 10/31/23 20:55 Oxygen Delivery Room Air 10/31/23 20:55 MDM - Eye Problem MDM Narrative Medical decision making narrative: 22F here with L eye redness/discharge; well appearing here with no pain on EOM, no vision changes; history and exam consistent with conjunctivitis. No signs of periorbital cellulitis without any swelling or pain. She does not were contact lenses, will be started on antibiotic drops with follow-up to PCP and return precautions discussed. Discharge Plan Discharge Clinical Impression: Bacterial conjunctivitis Patient Disposition: Home, Self-Care Condition: Stable Instructions: Antibiotic Form, Conjunctivitis (ED) Additional Instructions:
[2023-10-31] MEDS: POLYMYXIN/TRIMETHOPRIM OPHTH 10 ML DROPS 1 DROP LEFT EYE (21:14)
== END 2023-10-31 21:43 | disposition home or self-care (01) ==
LOC: ANHED 21:38
PROVIDERS: Emergency Provider Emergency Medicine
DX: H10.89 Other conjunctivitis (principal); E66.9 Obesity, unspecified
CPT/HCPCS: 99283; A9270

== ENCOUNTER 2023-11-08 15:14 | Outpatient (CLI) | payer MEDICAID, SELFPAY ==
[2023-11-08 16:33] LABS: Beta HCG Quantitative < 2.39 mIU/ML
== END 2023-11-08 15:15 | disposition home or self-care (01) ==
LOC: ANHLAB 15:16
PROVIDERS: Visit Provider Obstetrics & Gynecology
DX: Z30.9 Encounter for contraceptive management, unspecified (principal)
CPT/HCPCS: 36415; 84702